=== PATIENT | female | born 1965 | race Caucasian/White ===

== ENCOUNTER 2022-05-03 12:23 | Outpatient (CLI) | payer BC, SELFPAY ==
--- NOTE | ~2022-05-03 | US_ITS ---
EXAMINATION:US venous doppler LE RT INDICATION:Follow-up DVT seen on prior outside examination. TECHNIQUE: Multiple grayscale, color flow and Doppler images of the right lower extremity deep venous systems were obtained and reviewed. COMPARISON:No prior studies for comparison. FINDINGS: The common femoral, superficial femoral and popliteal veins demonstrate normal respiratory variation, augmentation and compressibility. Color flow is also seen within the posterior tibial, pe roneal, greater saphenous and profunda veins. IMPRESSION: 1: No lower extremity deep venous thrombosis. Reviewed, dictated and finalized at location A.
== END 2022-05-03 12:24 | disposition home or self-care (01) ==
PROVIDERS: PCP Family Medicine; Visit Provider Internal Medicine Hematology & Oncology
DX: I82.4Y1 Acute embolism and thrombosis of unspecified deep veins of right proximal lower extremity (principal)
CPT/HCPCS: 93971

== ENCOUNTER 2022-06-10 17:03 | Outpatient (CLI) | payer BC, SELFPAY ==
--- NOTE | ~2022-06-10 | DEXA_ITS ---
Bone Density Report Name: DELANO BARLOW Age: 57 Sex: Female Ethnicity: White Date of : 1965 Indication: postmenopausal; screening for osteoporosis; height loss; cancer; hysterectomy; Referring Provider: MARITA MCDANIEL Study: Bone densitometry was performed. Exam Date: June 10, 2022 Accession number: [id number] Bone Density: Region BMD T-score Z-score Classification AP Spine(L1-L4) 0.631 -3.8 -2.4 Osteoporosis Femoral Neck (Left) 0.512 -3.0 -1.8 Osteoporosis Total Hip (Left) 0.626 -2.6 -1.7 Osteoporosis Femoral Neck (Right) 0.479 -3.3 -2.1 Osteoporosis Total Hip (Right) 0.612 -2.7 -1.8 Osteoporosis Total Hip Mean 0.619 -2.7 -1.8 Osteoporosis World Health Organization criteria for BMD impression classify patients as: Normal (T-score at or above -1.0), Osteopenia (T-score between -1.0 and -2.5), or Osteoporosis (T-score at or below -2.5). 10-year Fracture Risk: FRAX not reported because: Some T-score for Spine Total or Hip Total or Femoral Neck at or below -2.5 Clinical Information Provided by Patient: Has used the following medications: Vitamin D, Calcium Has the following medical conditions: Cancer, Hysterectomy Patient maximum height was 67 Menopause Age: 40 Drinks caffeinated beverages Onset of menses at age 12 Number of children 1 Impression: The patient has osteoporosis, based on the Total Spine T-score. Discussion: HIGH RISK OF FRACTURE. BONE DENSITY IS UNDESIRABLY LOW AT ONE OR MORE SKELETAL SITES, CONSISTENT WITH OSTEOPOROSIS. ALSO, BONE DENSITY IS LOWER THAN EXPECTED FOR AGE AND SEX AT ONE OR MORE SKELETAL SITES; RECOMMEND A DILIGENT SEARCH FOR SECONDARY CAUSES OF BONE LOSS. This patient's lowest T-score meets the World Health Organization's (WHO) criteria for osteoporosis at one or more sites (T-score -2.5 or below). In untreated patients, the risk of osteoporotic fracture increases approximately two-fold for each 1.0 SD decrease in T-score. Low bone density is not the only risk factor for fracture; also consider factors such as patient's age, frailty or poor health, risk of falling, risk of injury, previous osteoporotic fracture, family history of osteoporosis, cigarette smoking, low body weight, etc. Not everyone with low bone mineral density has osteoporosis; osteomalacia and other metabolic bone disorders should also be considered. Patients who have osteoporosis should be evaluated for specific diseases and conditions (secondary causes) that may cause or contribute to bone loss. The [place] [employer] (AACE) and National Osteoporosis Foundation (NOF) recommend pharmacologic intervention for all postmenopausal women whose T-score is in this range. Also, this patient's bone mineral density is below the range considered normal for healthy age-,
--- NOTE | ~2022-06-10 | MM_ITS ---
EXAMINATION: MM screening chris RT w edmundo HISTORY: Screening mammogram. Status post left mastectomy in 2005 TECHNIQUE: Craniocaudal and mediolateral oblique 3-D tomosynthesis images were obtained and synthetic 2-D images were generated. CAD analysis was submitted and interpreted. COMPARISON: 07/13/2010 right mammogram BREAST PARENCHYMAL COMPOSITION: The breasts are heterogeneously dense, which may obscure small masses . FINDINGS: There is no evidence of suspicious mass, calcification, or architectural distortion to sugg est malignancy in either breast. There has been no suspicious interval change. IMPRESSION: 1. No mammographic evidence of malignancy. 2. Recommend routine screening mammography in one year. BI-RADS Category 1: Negative Reviewed, dictated and finalized at location A.
== END 2022-06-10 17:04 | disposition home or self-care (01) ==
PROVIDERS: PCP Family Medicine; Visit Provider Orthopaedic Surgery
DX: Z12.31 Encounter for screening mammogram for malignant neoplasm of breast (principal); Z78.0 Asymptomatic menopausal state; M81.0 Age-related osteoporosis without current pathological fracture
CPT/HCPCS: 77063; 77067; 77080

== ENCOUNTER 2022-07-26 07:20 | Outpatient (CLI) | payer BC, SELFPAY ==
[2022-07-26 08:06] LABS: Alanine Aminotransferase 33 U/L (6-35); Albumin Level 4.6 g/dL (3.5-5.1); Alkaline Phosphatase 100 U/L (38-126); Anion Gap 13 mmol/L (8-16); Aspartate Amino Transferase 27 U/L (14-36); Bilirubin,Total 0.6 mg/dL (0.2-1.3); Blood Urea Nitrogen 13 mg/dL (7-17); Calcium 9.2 mg/dL (8.4-10.2); Carbon Dioxide 30 mmol/L (22-30); Chloride 99 mmol/L (98-107); Estimated Glomerular Filt Rate > 60; Glucose 112 mg/dL (65-110); Phosphorus 3.4 mg/dL (2.5-4.5); Potassium 3.7 mmol/L (3.4-5.0); Sodium 142 mmol/L (137-145)
[2022-07-26 08:17] LABS: Parathyroid Intact 55.7 pg/mL (7.5-53.5)
[2022-07-26 08:29] LABS: Free T4 Free Thyroxine 1.24 ng/mL (0.78-2.19); Vitamin D 25 Hydroxy 53.8 ng/mL
[2022-08-02 15:00] LABS: TTG IGA AB <1.0 U/mL (<15.0)
[2022-08-05 14:10] LABS: Gliadin AB, IgG <1.0 U/mL (<15.0)
== END 2022-07-26 07:21 | disposition home or self-care (01) ==
LOC: ANHLAB 07:22
PROVIDERS: PCP Family Medicine; Visit Provider Internal Medicine Endocrinology, Diabetes & Metabolism
DX: M81.0 Age-related osteoporosis without current pathological fracture (principal); R14.0 Abdominal distension (gaseous)
CPT/HCPCS: 36415; 80053; 82306; 83516; 83970; 84100; 84439; 84443; 86003

== ENCOUNTER 2022-08-02 08:59 | Outpatient (CLI) | payer BC, SELFPAY ==
--- NOTE | ~2022-08-02 | US_ITS ---
EXAMINATION: US thyroid DATE: 08/02/2022 09:48 INDICATION: Goiter. TECHNIQUE: Multiple ultrasound images of the thyroid were obtained. COMPARISON: None. FINDINGS: The right thyroid lobe measures 5.1 x 1.4 x 1.6 cm. The left thyroid lobe measures 5.0 x 1.3 x 1.1 c m. In the right thyroid lobe, there is an 8 mm mixed cystic and solid, hypoechoic, wider than tall n odule with smooth margin without echogenic foci (TI-RADS TR3). In the right thyroid lobe, there is an 8 mm predominantly solid, hypoechoic, wider than tall nodule with smooth margin without echogenic fo ci (TR4). In the left thyroid lobe, there is a 6 mm predominantly cystic nodule (TR1). In the left th yroid lobe, there is a 4 mm nodule. IMPRESSION: 1. Small thyroid nodules, likely not clinically significant. No follow-up is needed. Reviewed, dictated and finalized at location A. IOVASCULAR TECHNICIAN IMPRESSION: 1. Small thyroid nodules, likely not clinically significant. No follow-up is ne eded.
== END 2022-08-02 09:00 | disposition home or self-care (01) ==
PROVIDERS: PCP Family Medicine; Visit Provider Internal Medicine Endocrinology, Diabetes & Metabolism
DX: E04.9 Nontoxic goiter, unspecified (principal); E04.2 Nontoxic multinodular goiter
CPT/HCPCS: 76536

== ENCOUNTER 2022-08-05 07:52 | Outpatient (CLI) | payer BC, SELFPAY ==
[2022-08-05 08:51] LABS: Total Volume 24 Hour Urine 2300 ml
[2022-08-05 08:59] LABS: Creatinine Urine 43.8 mg/dL
[2022-08-09 14:19] LABS: Total Volume 2400 mL; Urine Calcium 7.3 mg/dL
[2022-08-12 01:43] LABS: Fecal Fat, Ql Normal (Normal)
[2022-08-18 19:43] LABS: Pancreatic Elastase, Stool >500 mcg/g
== END 2022-08-05 07:53 | disposition home or self-care (01) ==
PROVIDERS: PCP Family Medicine; Visit Provider Internal Medicine Endocrinology, Diabetes & Metabolism
DX: M81.0 Age-related osteoporosis without current pathological fracture (principal); R14.0 Abdominal distension (gaseous)
CPT/HCPCS: 81050; 82340; 82570; 82653; 82705

== ENCOUNTER 2022-08-12 10:22 | Outpatient (CLI) | payer BC, SELFPAY ==
[2022-08-15 20:47] LABS: Antithrombin III Activity 117 % normal (80-135)
[2022-08-17 22:17] LABS: Lupus dRVVT Screen 31 sec (<=45); PTT-LA Screen 31 sec (<=40)
[2022-08-19 21:07] LABS: Factor V (Leiden) Mutation NEGATIVE
== END 2022-08-12 10:23 | disposition home or self-care (01) ==
PROVIDERS: PCP Family Medicine; Visit Provider Internal Medicine Hematology & Oncology
DX: I82.4Y1 Acute embolism and thrombosis of unspecified deep veins of right proximal lower extremity (principal)
CPT/HCPCS: 36415; 81240; 81241; 83090; 85300; 85303; 85306; 85613; 85730; 86146